=== PATIENT | female | born 2005 | race Caucasian/White ===

== ENCOUNTER 2024-06-06 04:02 | Emergency (ER) | payer BC, SELFPAY ==
[2024-06-06 04:08] VITALS: BP 118/97; PULSE 144; RESP 16; TEMP 36.3; O2SAT 100
[2024-06-06 04:35] LABS: Basophils Absolute Auto 0.1 K/mm3 (0.0-0.1); Basophils Percent Auto 1.1 % (0.2-1.2); Eosinophils Absolute Auto 0.2 K/mm3 (0-0.3); Eosinophils Percent Auto 2.5 % (0-4.4); Hematocrit 38.6 % (37.0-47.0); Hemoglobin 13.4 g/dL (12.0-15.0); Immature Granulocyte Absolute 0.02 K/mm3 (0.00-0.031); Immature Granulocyte Percent A 0.3 % (0-0.5); Lymphocytes Absolute Auto 3.51 K/mm3 (0.9-3.2); Lymphocytes Percent Auto 46.9 % (18.3-44.2); Mean Corpuscular HGB Conc 34.7 g/dl (32-36); Mean Corpuscular Hemoglobin 31.1 pg (26-34); Mean Corpuscular Volume 89.6 fl (80-100); Mean Platelet Volume 10.7 fl (7.4-10.4); Monocytes Absolute Auto 0.5 K/mm3 (0.1-0.6); Neutrophils Absolute Auto 3.2 K/mm3 (1.3-6.7); Neutrophils Percent Auto 42.2 % (45.5-73.1); Platelet Count Result 294 k/mm3 (150-375); Red Blood Count 4.31 M/mm3 (4.2-5.4); Red Cell Distribution Width 11.8 % (11.5-14.5); White Blood Count 7.5 K/mm3 (4.5-10.0)
--- NOTE | 2024-06-06 04:36 | PC.NURSE ---
Venlafaxine, Sertraline, Trazodone prescription bottles given to pharmaceutical development technician; locked in lock box by charge desk.
[2024-06-06 04:43] LABS: Acetaminophen < 10 ug/mL (10-30); Salicylate < 1.0 mg/dL (2-20)
[2024-06-06 04:44] LABS: Appearance Urine Clear (Clear); Bilirubin Urine Negative (Negative); Blood Urine Negative (Negative); Color Urine Yellow (Yellow); Glucose Urine UA Negative (Negative); Ketones Urine Negative (Negative); Leukocyte Esterase Ur Negative LEU/UL (Negative); Nitrate Urine Negative (Negative); Protein Urine Negative (Negative); Specific Grav Ur 1.006 (1.001-1.035); Urobilinogen Urine 0.2 mg/dL (<2.0)
[2024-06-06 04:47] LABS: Ethanol < 10 mg/dL (<10)
[2024-06-06 04:49] LABS: Alanine Aminotransferase 13 U/L (6-35); Albumin Level 5.1 g/dL (3.7-5.6); Alkaline Phosphatase 54 U/L (45-116); Anion Gap 12 mmol/L (4-12); Aspartate Amino Transferase 23 U/L (14-36); Bilirubin,Total 0.7 mg/dL (0.2-1.3); Blood Urea Nitrogen 8 mg/dL (8-21); Calcium 9.7 mg/dL (8.9-10.7); Carbon Dioxide 24 mmol/L (22-30); Chloride 104 mmol/L (98-107); Estimated CRCL calculation 96 ml/min; Estimated Glomerular Filt Rate > 60; Glucose 107 mg/dL (65-110); Sodium 140 mmol/L (134-143)
[2024-06-06 05:00] LABS: Amphetamine Screen Urine Negative (Negative); Barbiturate Screen Urine Negative (Negative); Benzodiazepines Screen Urine Negative (Negative); Cannabinoid Screen Urine Positive (Negative); Cocaine Screen Urine Negative (Negative); Methadone Screen Urine Negative (Negative); Opiate Screen Urine Negative (Negative); Phencyclidine Screen Urine Negative (Negative)
[2024-06-06 05:13] LABS: Add Urine Microscopic? NO
[2024-06-06 05:19] LABS: Influenza A QL RT-PCR Negative (Negative); Influenza B QL RT-PCR Negative (Negative); RSV RNA, RT-PCR Negative (Negative); SARS-CoV-2 RNA PCR Negative (Negative)
[2024-06-06] MEDS: POTASSIUM CHLORIDE 20 MEQ PACKET (FOR LIQUID) 40 MEQ PO (05:48)
--- NOTE | 2024-06-06 05:51 | ED.PSYCH ---
HPI - Psych General Chief Complaint: Psychiatric Symptoms Stated Complaint: SI Time Seen by Provider: 06/06/24 04:30 Source: patient Limitations: no limitations History of Present Illness HPI Narrative: patient is a 18-year-old female presents to the emergency department complaining of suicidal ideations. Patient states she has been feeling overall passively suicidal the past day or so. Patient admits to cutting her right arm today but not an attempt to kill herself. Patient admits to having a full plan to kill herself 2 weeks ago and she wrote in no but it passed and she did not seek any help. Patient states that she called her psychiatrist today who told her to come to the emergency department because she was feeling very suicidal and feeling like even though there was no specific plan anything that could come to mind she might do. Patient denies homicidal ideations. Patient admits to history of PTSD, depression, anxiety and also thinks that she may be getting diagnosed bipolar. Patient admits to being on Effexor and lamotrigine and taking medications as prescribed. Patient admits to seeing a psychiatrist as an outpatient. Patient denies alcohol or illicit drug use. Patient's her last menstrual period was early April and she is on control. Patient denies nausea, vomiting, diarrhea, urinary discomfort, cough, fever. Review of Systems Review of Systems: A 10 system review of systems was completed on the patient and is negative except for what is stated in the HPI. Nursing and ancillary documentation was reviewed. [facility] Social History Social History Substance use type: does not use Comments At time of signature, I have reviewed and agree with nursing past medical, surgical, social and family history unless otherwise noted. Please see the nursing chart for further information. There is no relevant family history pertinent to the presenting complaint. Exam Narrative: CONST: No acute distress. Well nourished. HENMT: Head is normocephalic and atraumatic. Moist mucous membranes. No posterior oropharynx erythema. EYES: No conjunctival icterus, injection, or pallor. PERRL. NECK: No meningeal signs. RESP: Able to speak in full sentences. Normal respiratory effort. CTAB. CARDIO: Regular rate. Regular rhythm. 2+ DP and radial pulses bilaterally. GI: Nondistended. No tenderness to palpation. Soft. : No CVA tenderness to palpation. SKIN: Diffuse excoriations over the right anterior forearm without bleeding or penetration of the dermis. NEURO: Oriented x3. Moves all extremities. EXTREM/MSK/BACK: No pedal edema. Course Vital Signs Vital signs: Vital Signs Temperature 97.4 F L 06/06/24 04:08 Pulse Rate 144 H 06/06/24 04:08 Respiratory Rate 16 06/06/24 04:08 Blood Pressure 118/97 H 06/06/24 04:08 Pulse Oximetry 100 06/06/24 04:08 Oxygen Delivery Room Air 06/06/24 04:08 Temperature 97.4 F L 06/06/24 04:08 Pulse Rate 144 H 06/06/24 04:08 Respiratory Rate 16 06/06/24 04:08 Blood Pressure 118/97 H 06/06/24 04:08 Pulse Oximetry 100 06/06/24 04:08 Oxygen Delivery Room Air 06/06/24 04:08 MDM - Psych MDM Narrative Medical decision making narrative: Patient presents with the above complaint. Physical examination as noted above. Plan discussed: Laboratory analysis, medical clearance, Behavioral Health analysis. Patient is medically clear for behavior health assessment. Patient has been assessed by behavior Health, note that the patient is a good candidate for outpatient follow-up, has her parents picking her up to take her home and she lives with her parents who are comfortable caring for her, signed a safety plan, notes that she is feeling much better and does not want to kill herself, believes a lot of this is related to medication adjustments and has good outpatient follow-up established. Patient will be discharged with outpatient follow-up and strict r
== END 2024-06-06 07:45 | disposition home or self-care (01) ==
PROVIDERS: Emergency Provider Student in an Organized Health Care Education/Training Program; PCP Pediatrics
DX: R45.851 Suicidal ideations (principal); Z20.822 Contact with and (suspected) exposure to COVID-19
CPT/HCPCS: 36415; 80053; 80307; 81003; 81025; 84443; 85025; 87637; 99284; A9270